=== PATIENT | male | born 1965 | race Hispanic/Latino ===

== ENCOUNTER → 2023-05-20 | Emergency (ER) | payer BC ==
[~2023-05-20] MED LIST: DERMABOND SKIN ADHESIVE TOP ONE
--- NOTE | 2023-05-20 14:56 | RAD REPORT ---
EXAM DESCRIPTION: CT - Head Brain Wo Cont - 05/20/2023 2:47 pm CLINICAL HISTORY: head injury, on brilinta Trauma, head injury COMPARISON: No comparisons TECHNIQUE: All CT scans are performed using dose optimization technique as appropriate and may inclu de automated exposure control or mA/KV adjustment according to patient size. FINDINGS: No intracranial hemorrhage, hydrocephalus or extra-axial fluid collection.No areas of brai n edema or evidence of midline shift. Mild mucosal opacification of the paranasal sinuses The calvarium is intact. IMPRESSION: No acute intracranial abnormality.
--- NOTE | 2023-05-20 16:51 | ER ---
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 patient reports his pain to be 6/10 on the pain scale. patient denies LOC. Coronavirus screen: At this time, the client does not indicate any symptoms associated with coronavirus-19. Ebola Screen: No symptoms or risks identified at this time. Initial Sepsis Screen: Does the patient meet any 2 criteria? No. Patient's initial sepsis screen is negative. Does the patient have a suspected source of infection? No. Patient's initial sepsis screen is negative. Risk Assessment: Do you want to hurt yourself or someone else? Patient reports no desire to harm self or others. Onset of symptoms was May 20, 2023. 14:30 Method Of Arrival: Ambulatory ap3 14:30 Acuity: TAMMY 2 ap3 15:35 Complicating Factors: There are no complicating factors for this patient. tl4 Triage Assessment: 14:32 General: Appears in no apparent distress. Behavior is calm, cooperative, appropriate ap3 for age. Pain: Complains of pain in left parietal area. Neuro: Level of Consciousness is awake, alert, obeys commands, Oriented to person, place, time, situation. Cardiovascular: Patient's skin is warm and dry. Respiratory: Airway is patent Respiratory effort is even, unlabored, Respiratory pattern is regular, symmetrical. Injury Description: Laceration sustained to left parietal area. Historical: - Allergies: 14:29 No Known Allergies; ap3 - Home Meds: 14:29 Brilinta 90 mg oral tablet [Active]; ap3 15:48 tamsulosin 0.4 mg Oral capsule 1 cap daily [Active]; losartan oral 1 tab [Active]; tl4 ezetimibe 10 mg oral tablet 1 tab [Active]; atorvastatin oral [Active]; metoprolol succinate oral [Active]; - PSHx: 15:35 Heart Stents; tl4 - Immunization history:: Client reports receiving the 2nd dose of the Covid vaccine. - Social history:: Smoking status: Patient denies any tobacco usage or history of. - Family history:: not pertinent. - Hospitalizations: : No recent hospitalization is reported. Screenin:34 Abuse screen: Denies threats or abuse. Nutritional screening: No deficits noted. ap3 Tuberculosis screening: No symptoms or risk factors identified. 15:31 [facility] ED Fall Risk Assessment (Adult) History of falling in the last 3 months, tl4 including since admission No falls in past 3 months (0 pts) Confusion or Disorientation No (0 pts) Intoxicated or Sedated No (0 pts) Impaired Gait No (0 pts) Mobility Assist Device Used No (0 pt) Altered Elimination No (0 pt) Score/Fall Risk Level 0 - 2 = Low Risk Oriented to surroundings, Maintained a safe environment, Educated pt \T\ family on fall prevention, incl call for assistance when getting out of bed, Assessed \T\ reinforced patient's understanding of fall precautions, Hourly rounding (assess needs \T\ fall precautionary measures) done, Used ambulatory aids as needed (educated on \T\ assisted with), Used gait belt as appropriate. Assessment: 15:29 General: Appears in no apparent distress. Behavior is calm, cooperative. Pain: Denies tl4 pain. Neuro: Level of Consciousness is awake, alert, obeys commands, Oriented to person, place, time, situation, Speech is normal, Facial symmetry appears normal. Cardiovascular: Capillary refill < 3 seconds Patient's skin is warm and dry. Respiratory: Airway is patent Respiratory effort is even, unlabored, Respiratory pattern is regular, symmetrical, Breath sounds are clear bilaterally. GI: No deficits noted. No signs and/or symptoms were reported involving the gastrointestinal system. : No deficits noted. No signs and/or symptoms were reported regarding the genitourinary system. EENT: No deficits noted. No signs and/or symptoms were reported regarding the EENT system. Derm: laceration to left parietal. Musculoskeletal: Denies. 16:52 Reassessment: No changes from previously documented assessment. Patient and/or family tl4 updated on plan of care and expected duration. Pain level reassessed. Patient is alert, oriented x 3, equal unlabored respirations, skin warm/dry/pink. 16:54 Injury Description: Laceration is clean, not bleeding. tl4 Vital Signs: 14:30 BP 135 / 78; Pulse 71; Resp 17; Temp 97.8; Pulse Ox 100% ; Weight 86.18 kg; Height 5 ap3 ft. 7 in. ; Pain 6/10; 15:51 BP 113 / 81; Pulse 64; Resp 18; Pulse Ox 97% on R/A; tl4 16:53 BP 110 / 67; Pulse 67; Resp 16; Temp 98.2(O); Pulse Ox 99% on R/A; Pain 0/10; tl4 14:30 Body Mass Index 29.76 (86.18 kg, 170.18 cm) ap3 14:30 Pain Scale: Adult ap3 16:53 Pain Scale: Adult tl4 ED Course: 14:27 Patient arrived in ED. mr 14:27 Jose M Rodríguez MD is Attending Physician. rn 14:32 Triage completed. ap3 14:33 Arm band placed on left wrist. ap3 15:00 Jonathon Mac, NIMA is Primary Nurse. tl4 15:33 Patient has correct armband on for positive identification. Bed in low position. Call tl4 light in reach. Side rails up X 1. Provided Education on: ED process. Door closed. Noise minimized. Moved to private room. 15:33 No provider procedures requiring assistance completed. Patient did not have IV access tl4 during this emergency room visit. 16:22 Head Brain Wo Cont In Process Unspecified. mr 16:22 Head Brain Wo Cont In Process Unspecified. mr 16:22 Head Brain Wo Cont In Process Unspecified. mr Administered Medications: No medications were administered Medication: 15:31 VIS not applicable for this client. tl4 Outcome: 16:50 Discharge ordered by . rn 16:53 Discharged to home ambulatory, tl4 16:53 Condition: stable 16:53 Discharge instructions given to patient, Instructed on discharge instructions, follow up and referral plans. wound care, Demonstrated understanding of instructions, follow-up care, wound care, 16:59 Patient left the ED. tl4 Signatures: Carrie Gonzalez, Reg Reg Jose M Rodríguez MD MD rn Prokisch, Amanda, RN RN ap3 Jonathon Mac RN RN tl4
--- NOTE | 2023-05-20 16:51 | EDPHYS ---
Physician Documentation [facility] Name: Jonas Dickinson Age: 57 yrs Sex: Male : 1965 Arrival Date: 05/20/2023 Time: 14:24 Bed 10 Private MD: ED Physician Jose M Rodríguez HPI: 05/19 14:40 This 57 yrs old Male presents to ER via Ambulatory with complaints of rn Laceration To Head. 14:40 The patient has a laceration and there are no complicating factors. The laceration(s) rn is(are) located on the scalp. Onset: The symptoms/episode began/occurred just prior to arrival. The patient has not experienced similar symptoms in the past. Patient reports stood up and hit top of head on a piece of a metal. No LOC. Drove himself here. On Brilinta since he had a stent 2 months ago. No pain other than scalp. No neck pain. Remembers all events.. Historical: - Allergies: 14:29 No Known Allergies; ap3 - Home Meds: 14:29 Brilinta 90 mg oral tablet [Active]; ap3 15:48 tamsulosin 0.4 mg Oral capsule 1 cap daily [Active]; losartan oral 1 tab [Active]; tl4 ezetimibe 10 mg oral tablet 1 tab [Active]; atorvastatin oral [Active]; metoprolol succinate oral [Active]; - PSHx: 15:35 Heart Stents; tl4 - Immunization history:: Client reports receiving the 2nd dose of the Covid vaccine. - Social history:: Smoking status: Patient denies any tobacco usage or history of. - Family history:: not pertinent. - Hospitalizations: : No recent hospitalization is reported. ROS: 14:40 Constitutional: Negative for fever, chills, and weight loss, Neck: Negative for injury, rn pain, and swelling, Cardiovascular: Negative for chest pain, palpitations, and edema, Skin: Positive for laceration to scalp Neuro: Positive for mild headache. Negative for focal neurological deficit. Exam: 14:40 Constitutional: This is a well developed, well nourished patient who is awake, alert, rn and in no acute distress. Head/Face: Normocephalic, 2 cm superficial laceration to posterior top of scalp. Clotted blood. No active bleeding. Eyes: Pupils equal round and reactive to light, extra-ocular motions intact. Neck: No cervical tenderness Neuro: Awake and alert, GCS 15, oriented to person, place, time, and situation. Cranial nerves II-XII grossly intact. Motor strength 5/5 in all extremities. Sensory grossly intact. Cerebellar exam normal. Normal gait. Vital Signs: 14:30 BP 135 / 78; Pulse 71; Resp 17; Temp 97.8; Pulse Ox 100% ; Weight 86.18 kg; Height 5 ap3 ft. 7 in. ; Pain 6/10; 15:51 BP 113 / 81; Pulse 64; Resp 18; Pulse Ox 97% on R/A; tl4 16:53 BP 110 / 67; Pulse 67; Resp 16; Temp 98.2(O); Pulse Ox 99% on R/A; Pain 0/10; tl4 14:30 Body Mass Index 29.76 (86.18 kg, 170.18 cm) ap3 14:30 Pain Scale: Adult ap3 16:53 Pain Scale: Adult tl4 Laceration: 16:49 Wound Repair of 2.5cm ( 1.0in ) subcutaneous laceration to scalp. Distal rn neuro/vascular/tendon intact. Wound prep: Extensive cleansing by nurse. Skin closed with 1 thin layer Adhesive skin closure using Dermabond. Dressed with bandaid. Patient tolerated well. MDM: 14:27 Patient medically screened. rn 16:07 Differential diagnosis: superficial laceration. Data reviewed: vital signs, nurses rn notes, radiologic studies, CT scan, and as a result, I will discharge patient. Counseling: I had a detailed discussion with the patient and/or guardian regarding the historical points, exam findings, and any diagnostic results supporting the discharge/admit diagnosis, radiology results, the need for outpatient follow up, to return to the emergency department if symptoms worsen or persist or if there are any questions or concerns that arise at home. Response to treatment: the patient's symptoms have markedly improved after treatment, the patient's condition has returned to base line, the patient is now symptom free, and as a result, I will discharge patient. ED course: Recommended robert given patient is on blood thinner, patient has difficulty at work, attempted Dermabond and seems to be holding well. Will observe here if no further bleeding and wound remains approximated will discharge home with return precautions.. 05/19 16:22 Order name: Head Brain Wo Cont EDMS 05/19 14:43 Order name: Wound Care; Complete Time: 15:51 rn 05/19 14:43 Order name: Wound dressing; Complete Time: 16:52 rn Administered Medications: No medications were administered Disposition Summary: 05/20/23 16:50 Discharge Ordered Notes: Location: Home rn Problem: new rn Symptoms: have improved rn Condition: Stable rn Diagnosis - Laceration without foreign body of unspecified part of head rn - Unspecified injury of head, initial encounter rn Followup: rn - With: Private Physician - When: As needed - Reason: Recheck today's complaints, Re-evaluation by your physician Discharge Instructions: - Discharge Summary Sheet rn - Tissue Adhesive civil rights attorney - Head Injury, Adult rn - Laceration Care, Adult rn Forms: - Medication Reconciliation Form rn - Thank You Letter rn - Antibiotic rn corrections - Prescription Opioid Use rn - Patient Portal Instructions rn - Leadership Thank You Letter rn Signatures: Dispatcher [employer] EDWA Carrie Gonzalez, Reg Reg Jose M Youngblood MD MD rn Prokisch, Amanda, RN RN ap3 Jonathon Mac RN RN tl4 Corrections: (The following items were deleted from the chart) 16:31 16:22 Head Brain Wo [id number].RAD.BRZ ordered. [facility]
[2023-05-20 19:02] VITALS: BP 110/67; TEMP 98.2; O2SAT 99
== END ==
LOC: ER 14:24
PROC: 0HQ0XZZ Repair Scalp Skin, External Approach (ICD-10-PCS; principal; 2023-05-20)
DX: S01.01XA Laceration without foreign body of scalp, initial encounter (principal); Z95.818 Presence of other cardiac implants and grafts
CPT/HCPCS: 70450